=== PATIENT | male | born 2000 | race Caucasian/White ===

== ENCOUNTER 2020-10-01 16:56 | Emergency (ER) | payer BC ==
[~2020-10-01] VITALS: Ht 185.4 cm; Wt 72.6 kg
--- NOTE | 2020-10-01 17:12 | NUR ---
Dr Guerrero at the bedside for MSE.
[2020-10-01] MEDS ORDERED: ONDA4TAB5 PO (17:21)
[2020-10-01] MEDS ORDERED: ONDANSETRON ODT 4 MG TAB.RAPDIS ONE (17:30)
[2020-10-01] MEDS ORDERED: ONDANSETRON ODT 4 MG TAB.RAPDIS SL ONE (17:30)
--- NOTE | 2020-10-01 17:32 | NUR ---
Pt able to tolorate PO fluids.
--- NOTE | 2020-10-01 17:37 | NUR ---
Patient discharged to home in stable condition. Written and verbal after care instructions given. Patient verbalizes understanding of instructions. Stressed follow up or return to ER for worsening s/s.
[2020-10-01 17:38] VITALS: BP 117/58
== END 2020-10-01 17:40 | disposition home or self-care (01) ==
LOC: ER 16:59
DX: R11.2 Nausea with vomiting, unspecified (principal); A74.9 Chlamydial infection, unspecified
CPT/HCPCS: A4663; Q0162